=== PATIENT | male | born 1960 | race Caucasian/White ===

== ENCOUNTER 2018-08-14 13:22 | Emergency (ER) | payer BC, SELFPAY ==
[2018-08-14 13:23] VITALS: BP 88/58; PULSE 70; RESP 16; TEMP 36.2; O2SAT 99
[2018-08-14 13:33] VITALS: BP 100/67; PULSE 77; RESP 16; O2SAT 100
--- NOTE | 2018-08-14 13:41 | ED.VISSUMM ---
- ER Visit Summary Date of Service: 08/14/18 Chief Complaint: Diarrhea History of Present Illness: The patient is a 58 M past medical history of hypertension and asthma. Patient states since Wednesday was treated at the [facility]. He is currently increased his diet and is using milk of magnesia. States the diarrhea is no better and had more than 10 yesterday. He has had no history of C. difficile. He has not been recently hospitalized. No recent antibiotics. No melena. Initially had some abdominal cramping when this first started but that is since resolved. He denies any melena. Physical Examination: Initial blood pressure 88/58. Temperature 97.2. Pulse ox 9 9% on room air no signs of hypoxia. Gentleman is in no distress. He does not look septic. He does not look severely dehydrated. H EENT exam mildly dry mixed membranes. Otherwise unremarkable. Neck nontender no lymphadenopathy. Lungs clear to auscultation bilaterally. Heart regular rhythm no murmur. Abdomen is soft. Nontender. Nondistended. Normal bowel sounds. No peritoneal signs. Both the right upper right lower quadrant unremarkable. No hernias or masses. No signs of obstruction. He is moving all 4 extremities. No edema. Calves are nontender. Normal range of motion. Back non- tender. Neurologically he is awake and alert with no focal motor deficits. Test Results: CBC shows a white count of 11. Hemoglobin 13. No bands. Electrolytes unremarkable. Gap is 7. BUN is elevated at 36 creatinine 1.4 consistent with dehydration. Emergency Department Course and Treatment: Patient is hypotensive more than likely secondary to diarrhea and dehydration. Will be treated with a liter of IV fluids. Imodium p.o. Screening labs will be obtained. C. difficile if he has a bowel movement here. However he has no risk factors for C. difficile at this time. No bowel movement since has been in the ER. On repeat exam is doing well at 1424. However his blood pressure still only running around 100 systolic. He will be given a second bag of IV fluids. Treatment Plan: 20 fluids and rest. Imodium for diarrhea. Follow-up his primary care physician if not improving or return to the ER. Disposition: discharge Impression: Acute diarrhea Hypotension secondary to dehydration This note was generated with [employer] dictation software. It may contain incorrect words, spelling, and punctuation that were not noted in review of the chart prior to signing ED Disposition - Plan for ED Patient: Chief Complaint: Abd Pain Referrals: Leeroy Velásquez MD [Primary Care Provider] -
[2018-08-14] MEDS: 0.9% Normal Saline 1,000 ML 1000 ML IV (13:43)
[2018-08-14] MEDS: Loperamide 2 MG Capsule 4 MG PO (13:46)
[2018-08-14 13:54] LABS: Hemoglobin 13.6 g/dl (13.0-16.5); Mean Corp Hgb Conc 33.2 g/gl (32-36); Mean Corpuscular Hgb 28.3 pg (27.0-32.0); Mean Corpuscular Volume 85.2 fL (80-94); Mean Platelet Vol. 9.7 fl (6.2-12.0); Platelet Count 314 K/mm3 (150-450); RBC Distribution Width CV 13.8 % (11.6-14.6); RBC Distribution Width SD 43.1 fl (35.1-43.9); Red Blood Count 4.81 M/mm3 (4.6-6.2); White Blood Count 11.1 K/mm3 (4.4-11.0)
[2018-08-14 14:03] LABS: Anion Gap 7 (5-15); BUN 36 mg/dL (7-18); Calcium,Total 8.9 mg/dL (8.5-10.1); Chloride 104 mmol/L (98-107); Creatinine, Serum 1.44 mg/dL (0.70-1.30); EST Glomerular Filtration Rate 54 mL/min (>60); Est Glom Filt Rate - Afr Amer 65 mL/min (>60); Estimated Creatinine Clearance 52.82 ml/min; Glucose 82 mg/dL (74-106); Potassium 3.8 mmol/L (3.5-5.1); Sodium Level 138 mmol/L (136-145)
[2018-08-14 14:19] LABS: Differential Indicated MANUAL DIFF; POSITIVE COUNT YES; POSITIVE DIFFERENTIAL YES; POSITIVE MORPHOLOGY YES
[2018-08-14 14:21] LABS: Eosinophil 1 % (0-5); Lymphocyte 26 % (19-41); Metamyelocyte 7 % (0-1); Monocyte 4 % (0-10); Neutrophil-Band 2 % (0-5); Neutrophil-Segmented 60 % (47-70); Total Cells Counted 100 (MANUAL DIFF)
[2018-08-14 14:22] LABS: Absolute Neutrophil Count 6.9 X10^3/uL (2.0-7.7); Platelet Estimate ADEQUATE (ADEQ); Red Cell Morphology NORM C+C NORMAL (NORM C&C)
--- NOTE | 2018-08-14 14:25 | ED.DEP ---
ED Disposition - Plan for ED Patient: Disposition: Home or Assisted Living Chief Complaint: Abd Pain Instructions: ED Diarrhea Viral Prescriptions: Loperamide [Imodium] 2 mg PO Q2H PRN PRN #10 cap PRN Reason: Diarrhea Referrals: Leeroy Velásquez MD [Primary Care Provider] - 3-5 Days if not improving Additional Instructions: Plenty of fluids and rest. Imodium to resolve the diarrhea. Follow-up with your doctor if this is not improving of the diarrhea is not getting better you will need stool cultures.
[2018-08-14 14:26] VITALS: BP 100/68; PULSE 67; RESP 17
[2018-08-14] MEDS: 0.9% Normal Saline 1,000 ML 999 ML IV (14:26)
--- NOTE | 2018-08-14 15:10 | ED.RN ---
REVIEWED D/C INSTRUCTIONS, FOLLOW UP CARE, PRESCRIPTION, AND S/S THAT WOULD WARRANT A RETURN TO THE ED WITH PT. PT VERBALIZED AN UNDERSTANDING AND DENIES FURTHER QUESTIONS FOR THIS RN. PT SKIN P/W/D, RESP EVEN AND UNLABORED, PT A&O X 3, NO DISTRESS NOTED. PT AMBULATED OUT OF ED, GAIT STEADY.
[2018-08-14 15:11] VITALS: BP 108/75; PULSE 68; RESP 18; O2SAT 100
[2018-08-16 09:23] LABS: Pathologist Review Reviewed
== END 2018-08-14 15:12 | disposition home or self-care (01) ==
PROVIDERS: Emergency Provider Emergency Medicine; Family Provider Family Medicine; PCP Family Medicine
DX: R19.7 Diarrhea, unspecified (principal); E86.0 Dehydration; I95.1 Orthostatic hypotension; I10 Essential (primary) hypertension; J45.909 Unspecified asthma, uncomplicated; Z79.899 Other long term (current) drug therapy
CPT/HCPCS: 80048; 85025; 96360; 96361; 99285; J7030; A4216

== ENCOUNTER 2022-06-01 12:25 | Emergency (ER) | payer OTHER, SELFPAY ==
[2022-06-01 12:26] VITALS: BP 154/87; PULSE 65; RESP 18; TEMP 36.6; O2SAT 99; BMI 22.5
--- NOTE | 2022-06-01 13:44 | VDLE_ITS ---
Reason For Study: Swelling RIGHT LEFT CFV is compressible, spontaneous, phasic, GSV is normal. competent and demonstrates normal CFV is compressible, spontaneous, phasic, augmentation. competent, and demonstrates normal Procedure augmentation. This is a venous duplex using B-mode, color FV is compressible, spontaneous, phasic, flow and spectral Doppler. competent and demonstrates normal Exam performed portable in ED. augmentation. A preliminary report was called and/or faxed PTV is compressible. to Dr. Farrell. LT PerV is compressible. Lt PopV is partially compressible and Lt T/P Trunk is dilated and non compressible consistent with acute DVT, DVT extends into the Lt PopV and appears mobile and not well adhered to vein wall. VL/Venous Duplex US, Unilateral Interpretation Summary Visible mobile thrombus left popliteal vein. Additional deep venous thrombosis of the left tibioperoneal trunk. Patent and compressible left great saphenous vein Normal flow patterns right common femoral vein Ordering Physician: Emilio Farrell Referring Physician: Leeroy Velásquez Performed By: Kyra Juarez, TAMIE, RVT
--- NOTE | 2022-06-01 13:45 | EDS_ITS ---
HPI History of Present Illness Chief Complaint: Lower Extremity Injury Narrative Narrative: 62-year-old male presenting with left leg swelling and [id number] feeling in the left foot. He states that after walking yesterday he noticed this. This morning his leg was more swollen but is gone down. He states he had a history of DVT distantly when he had knee surgery but this was provoked. He has not had a return of this. He is not anticoagulated. He denies chest pain or shortness of breath. He denies any traumatic injury. [facility] Medical History Asthma Back pain Diarrhea Hay fever Hypertension Weight loss Home Medications lisinopril 20 mg tablet 20 mg PO DAILY 06/25/14 [History Last Taken Unknown] atenolol 25 mg tablet 25 mg PO DAILY 08/14/18 [History Last Taken Unknown] budesonide-formoterol HFA 160 mcg-4.5 mcg/actuation aerosol inhaler (Symbicort) inh inhalation 06/01/22 [History Last Taken Unknown] Allergy/AdvReac Type Severity Reaction Status Date / Time No Known Allergies Allergy Verified 06/01/22 12:26 Surgical History History of knee surgery Social History Smoking Status: Never smoker alcohol intake: never ROS ROS ED Constitutional Constitutional ED: Denies chills or fever(s) Eyes Eyes: Denies change in vision ENT ENT ED: Denies rhinorrhea or sore throat Cardiovascular Cardiovascular: Denies chest pain or palpitations Respiratory/Chest Respiratory/Chest: Denies cough, dyspnea or dyspnea on exertion Gastrointestinal Gastrointestinal: Denies abdominal pain, constipation or diarrhea Genitourinary Genitourinary ED: Denies dysuria or hematuria Musculoskeletal Musculoskeletal: Reports other Details: Left leg swelling. Tingling sensation in left foot. Integumentary Denies abscess or rash Neurologic Neurologic: Denies headache(s) Psychiatric Psychiatric: Denies anxiety or depression EXAM Physical Exam Const Vital Signs: 06/01/22 12:26 Temperature 97.9 F Temperature Source Temporal Pulse Rate 65 Respiratory Rate 18 Blood Pressure 154/87 H Blood Pressure Mean 109 Pulse Ox 99 Oxygen Delivery Method Room Air Positive well nourished General Appearance ED: NAD HEENT Reports moist mucous membranes atraumatic Eyes PERRL Chest Wall inspection of chest normal and palpation of chest normal Resp normal respiratory effort and no retractions Cardio regular rate and regular rhythm Extremity Extremity Narrative: Left foot not tender to palpation. Pedal pulses 2+. Brisk cap refill all 5 toes. Skin is pink and warm. Slight 1+ edema on the tibial region. No cords palpated in the left calf compartments soft Neuro oriented x3 and CN's II-XII intact bilaterally Sensorium / Orientation: alert Motor Exam: strength 5/5 throughout Psych mental status grossly normal Skin no wounds MDM MDM MDM Narrative Medical decision making narrative: Patient presenting with left leg swelling and some numbness and tingling in the foot. He is neurovascularly intact. I obtained a DVT study which shows a popliteal DVT as well as a peroneal DVT. Patient was started on Eliquis. Risk benefits discussed. If patient develops chest pain or shortness of breath he should return to the ER. Impression: 1. DVT Discharge Plan Triage Chief Complaint: Lower Extremity Injury ED Provider: Emilio Farrell Dx/Rx/DC Orders Instructions: ED Deep Vein Thrombosis (DVT) Prescriptions: No Action atenolol 25 mg tablet 25 mg PO DAILY lisinopril 20 MG tablet 20 mg PO DAILY budesonide-formoterol [Symbicort] 160-4.5 mcg/actuation HFA aerosol inhaler INHALATION Primary Care Provider: Leeroy Velásquez Referrals: Leeroy Velásquez MD [Primary Care Provider] - Disposition Disposition: Home, Self Care
[2022-06-01] MEDS: APIXABAN 5 MG TABLET 10 MG PO (15:21)
[2022-06-01 15:29] VITALS: RESP 16
== END 2022-06-01 15:30 | disposition home or self-care (01) ==
PROVIDERS: Emergency Provider Student in an Organized Health Care Education/Training Program; PCP Family Medicine; Visit Provider Student in an Organized Health Care Education/Training Program
DX: I82.432 Acute embolism and thrombosis of left popliteal vein (principal); I10 Essential (primary) hypertension; Z79.899 Other long term (current) drug therapy
CPT/HCPCS: 93971; 99283